=== PATIENT | male | born 1940 | race Caucasian/White ===

== ENCOUNTER → 2016-07-20 | Outpatient (CLI) | payer OTHER, BC ==
[~2016-07-20] VITALS: Ht 190.5 cm; Wt 84.8 kg
[~2016-07-20] MED LIST: ACETAMINOPHEN-1 EAC1 PO; ALEVE220 M1 PO; BACTRIM DS TAB1 EACH PO; CARDIZEM CD240 MG PO; CENTRUM SILVER1 EAC2 PO; COUMADIN 5 MG TA5 M1 PO; DEMADEX20 MG PO; DILTIAZEM 24HR180 M1 PO; DIOVAN 80 MG TA80 M1 PO; DOXYCYCLINE 10100 MG PO; FOSAMAX 70 MG T70 MG PO; HYDROCODON-ACE1 EAC5 PO; HYDROCODONE-AP1 EAC6 PO; IRON325 PO; KLOR-CON 1010 MEQ PO; LOPRESSOR25 PO; MULTAQ400 MG PO; NOHOMEMEDICATIONS; NORCO 5-325 TA1 EACH PO; ONDANSETRON HCL4 M2 PO; PREDNISONE50 MG PO; XARELTO15 MG PO; XARELTO20 MG PO
--- NOTE | ~2016-07-20 | EKG ---
[address] [address] ELECTROCARDIOGRAM REPORT Name: YOSI NUÑEZ Room #: REG [facility]#: [id number] Admission: 07/20/16 Attend Phys: Jairo Farr MD Discharge: Date of : 40 Report #: [id number] THIS REPORT FOR: //name// [facility] Test Date: 2016-07-20 Test Time: 11:51:16 Pat Name: YOSI NUÑEZ Department: Room: Gender: M Borough Coordinator: SHABNAM : 1940 Requested By: Jairo Farr Order Number: [id number] MD: Dayton Oconnell Measurements Intervals [place] Rate: 55 P: 11 VT: 180 QRS: -34 QRSD: 100 T: 35 QT: 468 QTc: 448 Interpretive Statements Sinus rhythm Left axis deviation No previous ECGs available for comparison Electronically Signed On 07-20-2016 12:53:36 COMMUNICATION MANAGER by Dayton Oconnell [email or web address] <ELECTRONICALLY SIGNED> By: Dayton Oconnell MD, [facility] 07/20/16 1253 1151 1151 Dayton Oconnell MD, FACC /EPI
--- NOTE | ~2016-07-20 | P ---
[facility] [place] [address] PROCEDURE REPORT Name: YOSI NUÑEZ Room #: REG TANIKA Arteaga.#: [id number] Admission: 07/20/16 Attend Phys: Jairo Farr MD Discharge: Date of : 40 Report #: [id number] THIS REPORT FOR: //name// CC: Jairo Gupta DATE OF SERVICE: 07/20/2016 PREOPERATIVE DIAGNOSIS: Atrial fibrillation. POSTOPERATIVE DIAGNOSIS: Atrial fibrillation. HISTORY: The patient is a 76-year-old with history of recurrent atrial fibrillation and cardiomyopathy, likely related to tachycardia, likely due to AFib with rapid ventricular response. He has been loaded with Multaq and is here for a DC cardioversion. The patient underwent MAC anesthesia by the Anesthesiology service. He was consented prior to the procedure. Patches were placed in AP position. The patient underwent successful direct current cardioversion with 200 joules with uatsdin of sinus rhythm. CONCLUSIONS: Successful direct current cardioversion with uatsdin of sinus rhythm. <ELECTRONICALLY SIGNED> By: Jairo Farr MD 08/12/16 1226 1137 1523 Jairo Farr MD /nt
[2016-07-20 09:06] VITALS: BP 127/85
[2016-07-20 09:26] LABS: HEMATOCRIT 44.9 % (42.0-52.0); HEMOGLOBIN 14.8 gm/dL (14.0-18.0); MCH 30.9 pg (26.0-34.0); MCV 93.6 fL (80.0-100.0); RBC 4.8 mil/uL (4.50-6.00); RDW 13.7 % (10.5-14.5); WBC 5.1 thou/uL (4.0-11.0)
[2016-07-20 09:39] LABS: CALCIUM 8.9 mg/dL (8.5-10.1); CREATININE 1.7 mg/dL (0.6-1.3); POTASSIUM 4.1 mmol/L (3.5-5.1)
[2016-07-20 09:44] LABS: ALBUMIN 3.7 g/dL (3.4-5.0); TOTAL BILIRUBIN 0.8 mg/dL (<0.1-1.0); TOTAL PROTEIN 7.2 g/dL (6.4-8.2)
[2016-07-20 09:46] LABS: APTT 38.6 Seconds (24.5-32.8); INR 1.5; PROTIME 15.5 Seconds (9.3-11.4)
== END ==
LOC: CATH 08:10
PROVIDERS: Internal Medicine Cardiovascular Disease
DX: I48.91 Unspecified atrial fibrillation (principal)
CPT/HCPCS: 62110; 62900

== ENCOUNTER → 2016-10-19 | Outpatient (CLI) | payer OTHER, BC ==
--- NOTE | ~2016-10-19 | 2DMMODE ---
[facility] [place] [address] 2 D/M-MODE ECHOCARDIOGRAM Name: SAVANNAHYOSI M Room #: REG [facility]#: [id number] Admission: 10/19/16 Attend Phys: Jairo Farr Discharge: Date of : 40 Date of Service: 10/19/16 1421 Report #: [id number] THIS REPORT FOR: //name// APPROVED REPORT Study performed: 10/19/2016 11:58:09 EXAM: Comprehensive 2D, Doppler, and color-flow Echocardiogram Patient Location: Out-Patient Blood Pressure: 128/74 mmHg HR: 81 bpm Rhythm: Atrial Fibrillation Other Information Study Quality: Adequate Indications NISCM, Afib. Hx: HTN 2D Dimensions RVDd: 36.02 mm LVEF(%): 51.92 (>50%) IVSd: 11.19 (7-11mm) LVOT Diam: 21.71 (18-24mm) LVDd: 48.32 mm PWd: 9.85 (7-11mm) Ascending Aorta: 40.24 mm LVDs: 35.47 (25-40mm) Aortic Root: 40.98 mm Burr's LVEF: 51.92 % Volumes Left Atrial Volume (Systole) Single Plane 4CH: 53.50 mL Single Plane 2CH: 64.04 mL LA ESV Index: 31.00 mL/m2 Aortic Valve AoV Peak Romulo.: 1.25 m/s AO Peak Gr.: 6.53 mmHg LV Max P.32 mmHg LV Max: 0.75 m/s Mitral Valve MV E Max Romulo.: 0.76 m/s MV Decel. Time: 208.88 ms [facility] [address] [place] [address] 2 D/M-MODE ECHOCARDIOGRAM Name: YOSI NUÑEZ Room #: [facility]#: [id number] Admission: 10/19/16 Attend Phys: Jairo Farr Discharge: Date of : 40 Date of Service: 10/19/16 1421 Report #: [id number] Pulmonary Valve PV Peak Romulo.: 1.02 m/s PV Peak Gr.: 4.19 mmHg Tricuspid Valve TR Peak Romulo.: 2.15 m/s RAP Estimate: 5.00 mmHg TR Peak Gr.: 18.66 mmHg RVSP: 24.00 mmHg Left Ventricle The left ventricle is normal size. There is normal left ventricular wall thickness. Left ventricular systolic function is mildly decreased. LVEF is 45-50%. Diastology is indeterminate due to Afib. Right Ventricle The right ventricle is normal size. The right ventricular systolic function is normal. Atria The left atrium size is normal. The right atrium size is normal. Aortic Valve Aortic valve is mild to moderately calcified. No aortic regurgitation is present. There is no aortic valvular stenosis. Mitral Valve Mitral valve leaflets are mildly thickened. Mild mitral regurgitation. Tricuspid Valve The tricuspid valve is normal in structure. There is trace to mild tricuspid regurgitation. The right atrial pressure is estimated at 5 mmHg.Estimated PAP is 24mmHg. Pulmonic Valve The pulmonary valve is normal in structure. Trace pulmonic regurgitation. Great Vessels Aortic root is dilated. The ascending aorta is mildly dilated. IVC is normal in size and collapses >50% with inspiration. Pericardium There is no pericardial effusion. [facility] [place] [address] 2 D/M-MODE ECHOCARDIOGRAM Name: YOSI NUÑEZ Room #: [facility] [address] Karsten#: [id number] Admission: 10/19/16 Attend Phys: Jairo Farr Discharge: Date of : 40 Date of Service: 10/19/16 1421 Report #: [id number] <Conclusion> The left ventricle is normal size. LVEF is 45-50%. Aortic valve is mild to moderately calcified. No aortic regurgitation is present. There is no aortic valvular stenosis. Mitral valve leaflets are mildly thickened. Mild mitral regurgitation. There is trace to mild tricuspid regurgitation. The right atrial pressure is estimated at 5 mmHg.Estimated PAP is 24mmHg. Trace pulmonic regurgitation. Aortic root is dilated. The ascending aorta is mildly dilated. <ELECTRONICALLY SIGNED> By: Cesario Rios MD 10/19/16 142 20 20 Cesario Rios MD /INF
== END ==
LOC: CV 09:48
DX: I42.9 Cardiomyopathy, unspecified (principal); I48.91 Unspecified atrial fibrillation; I10 Essential (primary) hypertension

== ENCOUNTER 2016-10-25 15:19 | Emergency (ER) | payer OTHER, BC ==
[~2016-10-25] VITALS: Ht 180.3 cm; Wt 72.1 kg
--- NOTE | ~2016-10-25 | EKG ---
[place] [address] [address] [facility] [email or web address] [address] ELECTROCARDIOGRAM REPORT Name: YOSI NUÑEZ Room #: [facility]#: [id number] Admission: 10/25/16 Attend Phys: Discharge: 10/25/16 Date of : 40 Report #: [id number] THIS REPORT FOR: //name// [facility] ED Test Date: 2016-10-25 Test Time: 15:22:18 Pat Name: OYSI NUÑEZ Department: Room: Gender: Assistant Finance Director: WOJCIECH : 1940 Requested By: Nahum Case Order Number: [id number] MD: Dayton Oconnell Measurements Intervals [place] Rate: 71 P: [place]: QRS: -15 QRSD: 103 T: 36 QT: 387 QTc: 421 Interpretive Statements Atrial fibrillation Borderline left axis deviation Baseline wander in lead(s) V3 Compared to ECG 07/20/2016 11:51:16 Sinus rhythm no longer present Electronically Signed On 10-27-2016 7:39:05 CDT by Dayton Oconnell [email or web address] <ELECTRONICALLY SIGNED> By: Dayton Oconnell MD, [facility] 10/27/16 0739 21 21 Dayton Oconnell MD, [facility] /EPI
[2016-10-25 16:10] LABS: ABSOLUTE NEUTROPHILS 2.8 thou/uL (1.4-8.2); BASOPHILS 1.1 % (0.0-2.0); EOSINOPHILS 1.3 % (0.0-3.0); HEMATOCRIT 41.6 % (42.0-52.0); HEMOGLOBIN 14.1 gm/dL (14.0-18.0); LYMPHOCYTES 22.4 % (24.0-44.0); MCH 32.7 pg (26.0-34.0); MCV 96.3 fL (80.0-100.0); MONOCYTES 10.3 % (1.0-8.0); PLATELET COUNT 179 thou/uL (150-400); POLYS 64.9 % (36.0-66.0); RBC 4.32 mil/uL (4.50-6.00); RDW 13.3 % (10.5-14.5); WBC 4.3 thou/uL (4.0-11.0)
[2016-10-25 16:14] LABS: MANUAL DIFF NO
[2016-10-25 16:20] LABS: ANION GAP 8 mmol/L (7-16); BUN 24 mg/dL (7-18); CALCIUM 8.6 mg/dL (8.5-10.1); CHLORIDE 104 mmol/L (98-107); CO2 26 mmol/L (21-32); CREATININE 1.1 mg/dL (0.7-1.3); GLUCOSE 124 mg/dL (74-106); POTASSIUM 4.5 mmol/L (3.5-5.1); SODIUM 138 mmol/L (136-145)
[2016-10-25 16:27] LABS: ALBUMIN 3.5 g/dL (3.4-5.0); ALKALINE PHOSPHATASE 62 U/L (46-116); MAGNESIUM 1.9 mg/dL (1.8-2.4); SGOT 24 U/L (15-37); SGPT 20 U/L (30-65); TOTAL BILIRUBIN 0.5 mg/dL (<0.1-1.0); TOTAL PROTEIN 6.7 g/dL (6.4-8.2); TROPONIN-I < 0.04 ng/mL (<0.04-0.07)
[2016-10-25] MEDS ORDERED: ZOFRAN ODT4 MG PO (17:26)
== END 2016-10-25 18:01 | disposition home or self-care (01) ==
LOC: ER 15:19
PROVIDERS: Emergency Medicine
DX: R07.9 Chest pain, unspecified (principal); I10 Essential (primary) hypertension; F41.9 Anxiety disorder, unspecified; M19.90 Unspecified osteoarthritis, unspecified site; E03.9 Hypothyroidism, unspecified; Z86.2 Personal history of diseases of the blood and blood-forming organs and certain disorders involving the immune mechanism; I48.91 Unspecified atrial fibrillation; Z88.0 Allergy status to penicillin; Z88.5 Allergy status to narcotic agent

== ENCOUNTER → 2017-04-19 | Outpatient (CLI) | payer OTHER, BC ==
[~2017-04-19] MED LIST changes: +ZOFRAN ODT4 MG PO
--- NOTE | ~2017-04-19 | 2DMMODE ---
[facility] [address] [place] [address] 2 D/M-MODE ECHOCARDIOGRAM Name: YOSI NUÑEZ [id number] Admission: 04/19/17 Attend Phys: Jairo Farr Discharge: Date of : 40 Date of Service: 04/19/17 1407 Report #: [id number] THIS REPORT FOR: //name// APPROVED REPORT Study performed: 04/19/2017 13:19:55 EXAM: Comprehensive 2D, Doppler, and color-flow Echocardiogram Patient Location: Out-Patient Room #: Echo lab Status: routine BSA: 2.13 HR: 73 bpm BP: 138/88 mmHg Other Information Study Quality: Good Indications Atrial Fibrillation Hypertension/HDD NICMP 2D Dimensions RVDd: 48.32 mm LVEF(%): 45.52 (>50%) IVSd: 11.52 (7-11mm) LVOT Diam: 21.11 (18-24mm) LVDd: 45.13 mm PWd: 11.60 (7-11mm) Ascending Ao: 34.86 (22-36mm) LVDs: 34.95 (25-40mm) Aortic Root: 37.19 mm IVC: 17.00 mm Burr's LVEF: 45.52 % Volumes Left Atrial Volume (Systole) Single Plane 4CH: 68.64 mL Single Plane 2CH: 83.07 mL LA ESV Index: 39.00 mL/m2 Aortic Valve AoV Peak Romulo.: 1.11 m/s AO Peak Gr.: 5.78 mmHg LVOT Max P.64 mmHg LVOT Max V: 0.81 m/s GUERO Vmax: 2.56 cm2 Mitral Valve MV Decel. Time: 209.68 ms [facility] [place] [place] [address] 2 D/M-MODE ECHOCARDIOGRAM Name: YOSI NUÑEZ Room #: [facility]#: [id number] Admission: 04/19/17 Attend Phys: Jairo Farr Discharge: Date of : 40 Date of Service: 04/19/17 1407 Report #: [id number] MV E Max Romulo.: 0.94 m/s Pulmonary Valve PV Peak Romulo.: 0.82 m/s PV Peak Gr.: 2.70 mmHg Tricuspid Valve TR Peak Romulo.: 2.52 m/s TR Peak Gr.: 25.47 mmHg PA Pressure: 30.00 mmHg Left Ventricle The left ventricle is normal size. Mild concentric left ventricular hypertrophy. Left ventricular systolic function is mildly decreased. LVEF is 45-50%. This study is not technically sufficient to allow evaluation of the LV diastolic function due to atrial fibrillation. Right Ventricle Right ventricle is dilated. The right ventricular systolic function is normal. Atria Left atrium is dilated. Right atrium is dilated. Aortic Valve The aortic valve is normal in structure. Aortic valve is calcified. No aortic regurgitation is present. There is no aortic valvular stenosis. Mitral Valve The mitral valve is normal in structure. Mild mitral regurgitation. No evidence of mitral valve stenosis. Tricuspid Valve The tricuspid valve is normal in structure. There is mild tricuspid regurgitation. Estimated PAP 30 mmHg. There is no pulmonary hypertension. Pulmonic Valve The pulmonary valve is normal in structure. Trace pulmonic regurgitation. Great Vessels The aortic root is normal in size. IVC is normal in size and collapses >50% with inspiration. [facility] [place] [place] [address] 2 D/M-MODE ECHOCARDIOGRAM Name: YOSI NUÑEZ Tomas Room #: REG [facility]#: [id number] Admission: 04/19/17 Attend Phys: Jairo Farr Discharge: Date of : 40 Date of Service: 04/19/17 1407 Report #: [id number] Pericardium There is no pericardial effusion. <Conclusion> The left ventricle is normal size. LVEF is 45-50%. Right ventricle is dilated. The right ventricular systolic function is normal. Left atrium is dilated. Right atrium is dilated. The aortic valve is normal in structure. Aortic valve is calcified. The mitral valve is normal in structure. Mild mitral regurgitation. The tricuspid valve is normal in structure. There is mild tricuspid regurgitation. Estimated PAP 30 mmHg. There is no pulmonary hypertension. The pulmonary valve is normal in structure. Trace pulmonic regurgitation. The aortic root is normal in size. <ELECTRONICALLY SIGNED> By: Cesario Rios MD 04/19/171406 06 06 Cesario Rios MD /INF
== END ==
LOC: CV 13:02
DX: I08.1 Rheumatic disorders of both mitral and tricuspid valves (principal); I10 Essential (primary) hypertension; I48.91 Unspecified atrial fibrillation

== ENCOUNTER 2019-05-11 08:48 | Emergency (ER) | payer OTHER, BC ==
[~2019-05-11] VITALS: Ht 190.5 cm; Wt 83.5 kg
[2019-05-11 08:49] VITALS: BP 129/88
[2019-05-11] MEDS ORDERED: KEFLEX500 M2 PO (09:22)
== END 2019-05-11 09:27 | disposition home or self-care (01) ==
LOC: ER 08:48
DX: S60.561A Insect bite (nonvenomous) of right hand, initial encounter (principal); M79.89 Other specified soft tissue disorders; I10 Essential (primary) hypertension; I48.91 Unspecified atrial fibrillation; M19.90 Unspecified osteoarthritis, unspecified site; E03.9 Hypothyroidism, unspecified; F41.9 Anxiety disorder, unspecified; Z96.652 Presence of left artificial knee joint; Z86.711 Personal history of pulmonary embolism; Z88.0 Allergy status to penicillin; Z88.6 Allergy status to analgesic agent; W57.XXXA Bitten or stung by nonvenomous insect and other nonvenomous arthropods, initial encounter; Y93.89 Activity, other specified; Y92.89 Other specified places as the place of occurrence of the external cause; Y99.8 Other external cause status

== ENCOUNTER 2019-07-04 15:08 | Emergency (ER) | payer OTHER, BC ==
[~2019-07-04] VITALS: Ht 190.5 cm; Wt 84.8 kg
[~2019-07-04 15:08] MED LIST changes: +KEFLEX500 M2 PO
[2019-07-04] MEDS ORDERED: CARVEDILOL12.5 MG PO (15:18)
[2019-07-04 16:56] VITALS: BP 171/110
== END 2019-07-04 16:58 | disposition home or self-care (01) ==
LOC: ER 15:08
DX: S62.631A Displaced fracture of distal phalanx of left index finger, initial encounter for closed fracture (principal); D50.9 Iron deficiency anemia, unspecified; E03.9 Hypothyroidism, unspecified; I10 Essential (primary) hypertension; M79.89 Other specified soft tissue disorders; M19.90 Unspecified osteoarthritis, unspecified site; F41.9 Anxiety disorder, unspecified; Z86.711 Personal history of pulmonary embolism; Z96.652 Presence of left artificial knee joint; T75.3XXA Motion sickness, initial encounter; Y99.8 Other external cause status; Y93.89 Activity, other specified; Y92.89 Other specified places as the place of occurrence of the external cause